=== PATIENT | male | born 1980 | race Hispanic/Latino ===

== ENCOUNTER → 2023-05-21 07:16 | Outpatient (CLI) | payer OTHER, SELFPAY | PROVIDERS: Referring Provider Nurse Practitioner Family; Visit Provider Nurse Practitioner Family | DX: R05.9 Cough, unspecified (principal) | CPT/HCPCS: 94060 ==

== ENCOUNTER 2023-06-15 10:30 | Outpatient (RCR) | payer OTHER, SELFPAY ==
--- NOTE | 2023-06-01 14:36 | OT.OP.EVAL ---
Visit Care Team Role Provider Type Jareth Powell PA-C Attending Provider Non-Staff Referring Provider Specialty: Medical Address: [address] [place] [address], [id number] Phone: Email: Occupational Therapy Initial Evaluation OT Outpatient Adult Evaluation Start: 06/01/23 11:25 Freq: Status: Active Protocol: Document 06/01/23 11:48 AMS (Rec: 06/01/23 12:05 AMS [id number]) General Information - Adult Visit Number EVAL; 0/12 visits Plan of Care Dates 06/01/23 - 07/13/23 Insurance Information Prime; EVAL ONLY; * Auth 12 visits Visit Start Time 09:45 Visit Stop Time 10:15 Total Visit Minutes 30 Treatment Setting Outpatient Care Note Type Initial Evaluation Referring Physician Jareth Powell MD Reason for Referral Bilateral hand/wrist pain, bilateral DeQuervain's Identification Confirmed Yes Identification Confirmed By Self Goals Custodial Goals 1. Tristen will be modified independent with execution of home exercise program utilizing provided written and visual instructions from therapist. 2. Tristen will present with an increased ability to engage in meaningful tasks, as evidenced by the followina. Tristen will obtain a QuickDASH UE Outcome Measure Score of 10.00 or less. 2b. Tristen will demonstrate improvements in bilateral finger strength, as evidenced by results of pinchometer strength testing. Assessment/Plan Treatment Assessment Tristen is a 42 year-old left hand dominant male referred to outpatient OT secondary to bilateral hand/wrist pain, bilateral DeQuervain's tenosynovitis. 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 He was provided with bilateral wrist braces ( with rigid volar components) which he utilizes 1-2 hours per day but finds them impeding his speed and efficiency with keyboarding/ computer navigation. He has requested an accommodation for his desk set-up w/ standing component. He reports intermittent numbness and tingling of the hands and relieves discomfort via shaking of the hands. He tried pain medication; ceased taking them (choice). He denied icing or application of heat to distal UEs to relieve symptoms w/ report of taking break and/or going for a walk when needed. Tristen indicated 0 out of 10 on Pain Assessment Scale relative to bilateral distal UEs on whole body Pain Assessment Grid; indicated 2 out of 10 on Hand/Wrist Pain Assessment Grid relative to distal dorsal MP -> tips of digits thumb --> 5th digits. QuickDASH UE Outcome Measure Score = 15.91; QuickDASH UE Work Module Score = 6.25. (-) Reverse Phalen's Test; denied any changes noted in distal B UEs x 1 minute. Denial of difficulties sleeping/waking up at night d/t pain/ discomfort in distal UEs. Report of pain/discomfort of the dorsal 4th and 5th digits bilaterally w/ Yash's Maneuver. 75 degrees active R wrist ext vs 70 degrees active L wrist ext. 68 degrees bilateral active R wrist flex. 15 degrees active bilateral wrist RD. 30 degrees active R wrist ulnar deviation vs 25 degrees active L wrist ulnar deviation. 40 degrees active R thumb radial abduction vs 45 degrees active L thumb radial abduction. 45 degrees active R palmar thumb abduction vs 50 degrees active L palmar thumb abduction. Dynamometer II strength testing results w/ elbows in 90 degrees flexion: 88.0# of force R supervisor waterworks (40-44 y.o. males mean 116.8 +/- 20.7 ) vs 85.0# of force L supervisor waterworks (40 -44 y.o. males mean 112.8 +/- 18.7). 20.0# of force R lateral perry pinch (40-44 y.o. males mean 25.6 +/- 2.6) vs 19 .5# of force L lateral perry pinch (40-44 y.o. males mean 25.1 +/- 4.0). 11.0# of force R tip pinch (40-44 y.o. males mean 17.8 +/- 4.0) vs 11.0# of force L tip pinch (40-44 y.o. males mean 17.7 +/- 3.5). 15. 0# of force R 3-jaw pinch (40- 44 y.o. males mean 24.5 +/- 4. 3) vs 15.0# of force L 3-jaw pinch (40-44 y.o. males mean 24.8 +/- 4.9). Outpatient OT is recommended to help establish HEP, address finger/ hand weakness, provide joint protection education, identify conservative pain/management strategies, as well as compensatory techniques/ adaptive strategies to support success. Length of treatment (weeks) 6 Plan of Care Start Date 06/01/23 Plan of Care End Date 07/13/23 Comment 1 x a week vs 1 x every other week Therapeutic Contents Active Range of Motion, Adaptive Equipment Education, Client Education,Functional Activities,Home Exercise Program,Joint Protection, Manual Therapy, Neurodevelopment Treatment, Neuromuscular Re-Education, Self-Care,Stretching/ Flexibility Activities, Therapeutic Activities, Therapeutic Exercises, Modalities Modalities As Needed,As Prescribed Additional Types of Modalities Heat/Ice/Contrast Baths/ Ultrasound/Paraffin bath
--- NOTE | 2023-06-08 11:50 | OT.OP.TRT ---
Visit Care Team Role Provider Type Jareth Powell PA-C Attending Provider Non-Staff Referring Provider Specialty: Medical Address: [address] [place] [address], [id number] Phone: Email: Occupational Therapy Treatment Note OT Outpatient Treatment Note - Adult Start: 06/01/23 11:25 Freq: Status: Active Protocol: Document 06/08/23 11:34 AMS (Rec: 06/08/23 11:50 AMS [id number]) OT Outpatient Adult Treatment Note Session Time Visit Start Time 10:20 Visit Stop Time 10:50 Total Visit Minutes 30 Visit Information Visit Number 08/07 visits Plan of Care Dates 06/01/23 - 07/13/23 Insurance Information Prime; EVAL ONLY; * Auth 12 visits Setting Treatment Setting Outpatient Care Visit Type Note Type Treatment Note General Information General Information Tristen is a 42 year-old left hand dominant male referred to outpatient OT secondary to bilateral hand/wrist pain, bilateral DeQuervain's tenosynovitis. 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 He was provided with bilateral wrist braces ( with rigid volar components) which he utilizes 1-2 hours per day but finds them impeding his speed and efficiency with keyboarding/ computer navigation. He has requested an accommodation for his desk set-up w/ standing component. He reports intermittent numbness and tingling of the hands and relieves discomfort via shaking of the hands. He tried pain medication; ceased taking them (choice). He denied icing or application of heat to distal UEs to relieve symptoms w/ report of taking break and/or going for a walk when needed. - Subjective Identification Type Name Identification Reconciled With Medical Record Observations Able to recall distal UE passive wrist stretches. Passive wrist flex and wrist ext w/ option to use TT to support wrist ext/efficiency w / completion bilaterally. Patient/Caregiver Compliance with Home Excellent Exercise Program - Objective Objective Measurements Please refer to below for progress towards meeting established OT goals: Rear Admiral Goals 1. Tristen will be modified independent with execution of home exercise program utilizing provided written and visual instructions from therapist. 2. Tristen will present with an increased ability to engage in meaningful tasks, as evidenced by the followina. Tristen will obtain a QuickDASH UE Outcome Measure Score of 10.00 or less. 2b. Tristen will demonstrate improvements in bilateral finger strength, as evidenced by results of pinchometer strength testing. - Exercises 3 Descriptor Blue flexbar. Distal UE strengthening/Montessori Program Director Strength/ Sustained Montessori Program Director Strength Pronation. 1 x 15. Supination. 1 x 15 Wrist flex. 1 x 15. Wrist ext. 1 x 15. 2 Descriptor Hand/Digit Strengthening. Firm, blue theraputty. Lateral perry pinch, tip pinch and 3- jaw pinch/palmar pinch strengthening w/ use of theraputty, as well as finger opposition, digit extension and director institution strengthening. 1 Descriptor Passive stretches. Myofascial Release. Self-myofascial release. Bilateral x 20 sec thumb webspaces; switch and repeat hold/stretch. Bilateral w/ use of tennis ball x 20 sec; switch and repeat hold/stretch . Passive wrist ext w/ use of TT x 20 sec bilaterally. Introduced bilateral wrist ext w/ forearm supination and elbows near full ext at wall x [address] at TT x 20 sec bilaterally. Passive wrist UD at TT x 20 sec bilaterally . - Assessment Assessment of Improvement Advanced therapeutic exercises (see above); advanced HEP ( see below for details). Overall, good session. Outpatient OT is recommended to help establish HEP, address finger/hand weakness, provide joint protection education, identify conservative pain/ management strategies, as well as compensatory techniques/ adaptive strategies to support success. Home Exercise Program 06/08/23 = Reviewed passive wrist flex/wrist ext w/ elbow near full ext w/ hold of 20-30 sec. Reviewed passive wrist ext w/ TT assist. Instructed in use of wall as an alt to TT for passive wrist ext w/ elbows near full ext w/ forearm supination; hold for 20-30 sec. Instructed in passive wrist RD and wrist UD utilizing TT w/ elbow(s) near full extension w/ hold of 20- 30 sec. Instructed in self- myofasical release of thumb adductor (thumb webspaces vs use of tennis ball to assist); rec hold for 20-30 sec and switching thumb positions and repeating. Provided w/ firm, blue theraputty for home use. Instructed in care and storage . Instructed in lateral perry pinch, tip pinch and 3-jaw pinch/palmar pinch strengthening w/ use of theraputty, as well as finger opposition, digit extension and director institution strengthening. Instructed to ensure slight IPJ flex of thumb w/ opposition. Rec 3 x a week, w/ monitoring of hand fatigue. 3 x 10 reps per exercise and/or over 3-4 minute period of time (length of 1 break in commericals). - Plan Therapy Recommendations Continue with Current Program, Advance per Rehabilitation Protocol
--- NOTE | 2023-06-15 11:48 | OT.OP.DC ---
Visit Care Team Role Provider Type Jareth Powell PA-C Attending Provider Non-Staff Referring Provider Address: [address] [place] [address], [id number] Phone: Email: OT Outpatient OT Outpatient Adult Evaluation Start: 06/01/23 11:25 Freq: Status: Active Protocol: Document 06/01/23 11:48 AMS (Rec: 06/01/23 12:05 AMS [id number]) General Information - Adult Visit Information Visit Number EVAL; 0/12 visits Plan of Care Dates 06/01/23 - 07/13/23 Insurance Information Prime; EVAL ONLY; * Auth 12 visits Session Time Visit Start Time 09:45 Visit Stop Time 10:15 Total Visit Minutes 30 Setting Treatment Setting Outpatient Care Visit Type Note Type Initial Evaluation Referral Referring Physician Jareth Powell MD Reason for Referral Bilateral hand/wrist pain, bilateral DeQuervain's Identification Identification Confirmed Yes Identification Confirmed By Self Goals Tile Classifier Goals Tile Classifier Goals 1. Tristen will be modified independent with execution of home exercise program utilizing provided written and visual instructions from therapist. 2. Tristen will present with an increased ability to engage in meaningful tasks, as evidenced by the followina. Tristen will obtain a QuickDASH UE Outcome Measure Score of 10.00 or less. 2b. Tristen will demonstrate improvements in bilateral finger strength, as evidenced by results of pinchometer strength testing. Assessment/Plan Assessment Treatment Assessment Tristen is a 42 year-old left hand dominant male referred to outpatient OT secondary to bilateral hand/wrist pain, bilateral DeQuervain's tenosynovitis. 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 He was provided with bilateral wrist braces ( with rigid volar components) which he utilizes 1-2 hours per day but finds them impeding his speed and efficiency with keyboarding/ computer navigation. He has requested an accommodation for his desk set-up w/ standing component. He reports intermittent numbness and tingling of the hands and relieves discomfort via shaking of the hands. He tried pain medication; ceased taking them (choice). He denied icing or application of heat to distal UEs to relieve symptoms w/ report of taking break and/or going for a walk when needed. Tristen indicated 0 out of 10 on Pain Assessment Scale relative to bilateral distal UEs on whole body Pain Assessment Grid; indicated 2 out of 10 on Hand/Wrist Pain Assessment Grid relative to distal dorsal MP -> tips of digits thumb --> 5th digits. QuickDASH UE Outcome Measure Score = 15.91; QuickDASH UE Work Module Score = 6.25. (-) Reverse Phalen's Test; denied any changes noted in distal B UEs x 1 minute. Denial of difficulties sleeping/waking up at night d/t pain/ discomfort in distal UEs. Report of pain/discomfort of the dorsal 4th and 5th digits bilaterally w/ Yash's Maneuver. 75 degrees active R wrist ext vs 70 degrees active L wrist ext. 68 degrees bilateral active R wrist flex. 15 degrees active bilateral wrist RD. 30 degrees active R wrist ulnar deviation vs 25 degrees active L wrist ulnar deviation. 40 degrees active R thumb radial abduction vs 45 degrees active L thumb radial abduction. 45 degrees active R palmar thumb abduction vs 50 degrees active L palmar thumb abduction. Dynamometer II strength testing results w/ elbows in 90 degrees flexion: 88.0# of force R barber stylist (40-44 y.o. males mean 116.8 +/- 20.7 ) vs 85.0# of force L barber stylist (40 -44 y.o. males mean 112.8 +/- 18.7). 20.0# of force R lateral perry pinch (40-44 y.o. males mean 25.6 +/- 2.6) vs 19 .5# of force L lateral perry pinch (40-44 y.o. males mean 25.1 +/- 4.0). 11.0# of force R tip pinch (40-44 y.o. males mean 17.8 +/- 4.0) vs 11.0# of force L tip pinch (40-44 y.o. males mean 17.7 +/- 3.5). 15. 0# of force R 3-jaw pinch (40- 44 y.o. males mean 24.5 +/- 4. 3) vs 15.0# of force L 3-jaw pinch (40-44 y.o. males mean 24.8 +/- 4.9). Outpatient OT is recommended to help establish HEP, address finger/ hand weakness, provide joint protection education, identify conservative pain/management strategies, as well as compensatory techniques/ adaptive strategies to support success. Plan Length of treatment (weeks) 6 Plan of Care Start Date 06/01/23 Plan of Care End Date 07/13/23 Comment 1 x a week vs 1 x every other week Therapeutic Contents Active Range of Motion, Adaptive Equipment Education, Client Education,Functional Activities,Home Exercise Program,Joint Protection, Manual Therapy, Neurodevelopment Treatment, Neuromuscular Re-Education, Self-Care,Stretching/ Flexibility Activities, Therapeutic Activities, Therapeutic Exercises, Modalities Modalities As Needed,As Prescribed Additional Types of Modalities Heat/Ice/Contrast Baths/ Ultrasound/Paraffin bath Functional Wrist/Hand Scan Hand Side Sensory Assessment Sensory Profile2 OT Outpatient Treatment Note - Adult Start: 06/01/23 11:25 Freq: Status: Active Protocol: Document 06/15/23 11:16 AMS (Rec: 06/15/23 11:47 AMS [id number]) OT Outpatient Adult Treatment Note Session Time Visit Start Time 10:30 Visit Stop Time 11:15 Total Visit Minutes 45 Visit Information Visit Number 2/12 visits Plan of Care Dates 06/01/23 - 07/13/23 Insurance Information Prime; EVAL ONLY; * Auth 12 visits Setting Treatment Setting Outpatient Care Visit Type Note Type Treatment Note General Information General Information Tristen is a 42 year-old left hand dominant male referred to outpatient OT secondary to bilateral hand/wrist pain, bilateral DeQuervain's tenosynovitis. 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 He was provided with bilateral wrist braces ( with rigid volar components) which he utilizes 1-2 hours per day but finds them impeding his speed and efficiency with keyboarding/ computer navigation. He has requested an accommodation for his desk set-up w/ standing component. He reports intermittent numbness and tingling of the hands and relieves discomfort via shaking of the hands. He tried pain medication; ceased taking them (choice). He denied icing or application of heat to distal UEs to relieve symptoms w/ report of taking break and/or going for a walk when needed. - Subjective Identification Type Name Identification Reconciled With Medical Record Observations Denied any questions re: home exercise program (stretches/ strengthening). Patient/Caregiver Compliance with Home Excellent Exercise Program - Objective Objective Measurements Please refer to below for progress towards meeting established OT goals: Nursing Home Goals GOALS MET 06/15/23 Tristen will be modified independent with execution of home exercise program. *MET 2. Tristen will present with an increased ability to engage in meaningful tasks, as evidenced by the followina. Tristen will obtain a QuickDASH UE Outcome Measure Score of 10.00 or less. *MET 06/15/23 GOALS D/C 06/15/23 Tristen will obtain a QuickDASH UE Outcome Measure Score of 10 .00 or less. 06/15/23 = QuickDASH UE Outcome Measure Score = 13.64 Tristen will demonstrate improvements in bilateral finger strength, as evidenced by results of pinchometer strength testing. R lateral perry pinch = 17.0# of force (vs initial 20.0# of force); L lateral perry pinch = 18.0# of force (vs initial 19.5# of force); R 3-jaw pinch = 15.5# of force (vs initial 15.0# of force); L 3-jaw pinch = 14.5# of force (vs initial 15.0# of force); R tip pinch = 9.5# of force (vs initial 11.0# of force); L tip pinch = 11.0# of force (vs initial 11.0# of force). - Exercises 3 Descriptor Blue flexbar. Distal UE strengthening/Cognos Bi Developer Strength/ Sustained Cognos Bi Developer Strength Pronation. 2 x 15. Supination. 2 x 15 Wrist flex. 2 x 15. Wrist ext. [address]/twist. 2 x 15. 6.6# of force. Wrist UD/twist. 2 x 15. 6.6# of force Pick-up and hold 5-10 sec. 3 x 5. 6.6# of force. 2 Descriptor Hand/Digit Strengthening. Firm, blue theraputty. Lateral perry pinch, tip pinch and 3- jaw pinch/palmar pinch strengthening w/ use of theraputty, as well as finger opposition, digit extension and barber stylist strengthening. 1 Descriptor Passive stretches. Myofascial Release. Self-myofascial release. Bilateral x 20 sec thumb webspaces; switch and repeat hold/stretch. Bilateral w/ use of tennis ball x 20 sec; switch and repeat hold/stretch . Passive wrist ext w/ use of TT x 20 sec bilaterally. Introduced bilateral wrist ext w/ forearm supination and elbows near full ext at wall x [address] at TT x 20 sec bilaterally. Passive wrist UD at TT x 20 sec bilaterally . - Assessment Assessment of Improvement Tristen is independent with his home exercise program and denies any questions. He has made progress with outpatient OT since time of initial evaluation, as evidenced by the following: QuickDASH UE Outcome Measure decreased from 15.91 to 13.64 and QuickDASH UE Work Module Score decreased from 6.25 to 0.00 and reduction of pain/discomfort from 2--> 1 for right hand versus bilateral 2 out of 10 pain as indicated on the Pain Assessment Grid. Although, Tristen did not demonstrate increases in bilateral pinch strength with pinchometer strength testing, he is demonstrating increasing joint protection awareness and has been provided with resistant theraputty for home use. Thus, recommend d/c from outpatient OT at this time. Home Exercise Program 06/08/23 = Reviewed passive wrist flex/wrist ext w/ elbow near full ext w/ hold of 20-30 sec. Reviewed passive wrist ext w/ TT assist. Instructed in use of wall as an alt to TT for passive wrist ext w/ elbows near full ext w/ forearm supination; hold for 20-30 sec. Instructed in passive wrist RD and wrist UD utilizing TT w/ elbow(s) near full extension w/ hold of 20- 30 sec. Instructed in self- myofasical release of thumb adductor (thumb webspaces vs use of tennis ball to assist); rec hold for 20-30 sec and switching thumb positions and repeating. Provided w/ firm, blue theraputty for home use. Instructed in care and storage . Instructed in lateral perry pinch, tip pinch and 3-jaw pinch/palmar pinch strengthening w/ use of theraputty, as well as finger opposition, digit extension and barber stylist strengthening. Instructed to ensure slight IPJ flex of thumb w/ opposition. Rec 3 x a week, w/ monitoring of hand fatigue. 3 x 10 reps per exercise and/or over 3-4 minute period of time (length of 1 break in commericals). - Plan Therapy Recommendations Discharge from Occupational Therapy
== END 2023-06-17 10:15 | disposition home or self-care (01) ==
LOC: OT 10:30
PROVIDERS: Referring Provider Physician Assistant; Visit Provider Physician Assistant
DX: M25.539 Pain in unspecified wrist (principal); M65.4 Radial styloid tenosynovitis [de Quervain]; R53.1 Weakness
CPT/HCPCS: 97110; 97165